=== PATIENT | female | born 1995 | race Caucasian/White ===

== ENCOUNTER 2017-04-23 18:51 | Emergency (ER) | payer BC ==
--- NOTE | 2017-04-23 19:12 | Emergency Department Record ---
History of Present Illness - General Chief complaint: Pain Stated complaint: LT HIP PAIN Time Seen by Provider: 04/23/17 19:04 Source: Patient, Family Mode of Arrival: Ambulatory Limitations: No limitations - History of Present Illness Initial comments: 22 yo female presents with left lower back pain that started at work today. She works as a veterinary assistance. She states she does have a history of scoliosis. She states today she had to hold animals on two occasions while leaning over in an awkward position. She gradually developed sharp left lower back pain with any movement. Her only position of comfort is standing up. No weakness, numbness, tingling or radiation down the legs. No history of back surgery. The actual left hip itself is not painful. MD Complaint: Other (back pain) -: Hour(s) (5) Location: Left -: Yes Arthralgia Radiation: Distal Quality: Aching, Sharp Consistency: Constant Improves with: Immobilization Worsens with: Palpation, Walking, Weight bearing Associated Symptoms: Denies other symptoms - Related Data Previous Rx's Medication Instructions Recorded Cyclobenzaprine HCl [Flexeril] 10 mg PO TID #20 tablet 04/23/17 Allergies Allergy/AdvReac Type Severity Reaction Status Date / Time latex Allergy Intermediate RASH Unverified 02/07/17 10:33 Penicillins Allergy Intermediate RASH Unverified 02/07/17 10:33 Review of Systems Constitutional: Denies: Chills, Fever, Malaise, Weakness Eyes: Denies: Eye discharge, Vision change ENT: Denies: Congestion Respiratory: Denies: Cough, Dyspnea, Hemoptysis, Stridor, Wheezes Cardiovascular: Denies: Chest pain Endocrine: Denies: Fatigue Gastrointestinal: Denies: Abdominal pain, Diarrhea, Nausea, Vomiting Genitourinary: Denies: Dysuria, Frequency, Hematuria, Urgency Musculoskeletal: Reports: As per HPI, Arthralgia, Back pain Skin: Denies: Bruising, Change in color, Rash Neurological: Denies: Abnormal gait, Confusion, Headache, Numbness, Paresthesias , Tingling, Tremors, Weakness Psychiatric: Denies: Anxiety Hematological/Lymphatic: Denies: Blood Clots, Easy bleeding, Easy bruising, Swollen glands Physical Exam - General General Appearance: Alert, Oriented x3, Cooperative, No acute distress Limitations: No limitations - Head Head exam: Atraumatic, Normocephalic, Normal inspection - Eye Eye exam: Normal appearance. negative: Conjunctival injection, Periorbital swelling - ENT ENT exam: Normal exam, Mucous membranes moist Ear exam: Normal external inspection Nasal Exam: Normal inspection Mouth exam: Normal external inspection - Neck Neck exam: Normal inspection, Full ROM - Respiratory Respiratory exam: Normal lung sounds bilaterally. negative: Respiratory distress - Cardiovascular Cardiovascular Exam: Regular rate, Normal rhythm, Normal heart sounds - GI/Abdominal GI/Abdominal exam: Soft. negative: Guarding - Rectal Rectal exam: Deferred - exam: Deferred - Extremities Extremities exam: Normal inspection, Normal capillary refill. negative: Calf tenderness, Full ROM, Joint swelling, Pedal edema, Tenderness Image of Full Body: 1 - tender left lowr lumbar, no rash, left hip negative log roll, no pain on palpation, foot flexion and extension intact, no numbness, tingling no weakness of the LLE against resistence. - Back Back exam: Reports: Normal inspection, CVA tenderness (L) (deep left lower lumbar), Muscle spasm, Paraspinal tenderness, Tenderness. Denies: CVA tenderness (R), Full ROM, Rash noted, Vertebral tenderness - Neurological Neurological exam: Alert, Motor sensory deficit, Normal gait, Oriented X3, Reflexes normal. negative: Altered - Psychiatric Psychiatric exam: Normal affect, Normal mood - Skin Skin exam: Dry, Intact, Normal color, Warm Course - Reevaluation(s) Reevaluation #1: 04/23/17 20:07 The patient is feeling much better after the mediations. She reports very mild pain and spasm at this time. Reevaluation #2: 04/23/17 20:20 No acute changes on the Lumbar XR. Scoliosis noted. 04/23/17 20:23 The UA is negative 04/23/17 20:25 HCG is negative Disposition Disposition: Discharge Clinical Impression: Lumbar strain Qualifiers: Encounter type: initial encounter Qualified Code(s): S39.012A - Strain of muscle, fascia and tendon of lower back, initial encounter Disposition: Home, Self-Care Condition: (1) Good Instructions: Low Back Strain (ED) Additional Instructions: Rest tomorrow No prolonged standing, lifting, bending Call your doctor for close follow up and a recheck this week of your back pain Return to the ER if worse, weakness, changes in bowel or bladder functions or any new concerns Prescriptions: Cyclobenzaprine HCl [Flexeril] 10 mg PO TID #20 tablet Forms: Patient Portal Access Time of Disposition: 20:25 Quality - Quality Measures Quality Measures: N/A - Blood Pressure Screening Does Patient Have Any of the Following: No Blood Pressure Classification: Pre-Hypertensive BP Reading Systolic Measurement: 145 Diastolic Measurement: 87 Screening for High Blood Pressure: < Pre-Hypertensive BP, F/U Documented > [ [id number]] Pre-Hypertensive Follow-up Interventions: Referral to alternative/primary care provider.
[2017-04-23] MEDS: KETOROLAC 30 MG/ML VIAL IVP ONE (19:44)
[2017-04-23] MEDS: MORPHINE SULFATE 5 MG/ML PFS IVP ONE (19:45)
[2017-04-23] MEDS: 0.9 % SODIUM CHLORIDE 1,000 ML BAG IV ONE (20:10)
[2017-04-23] MEDS: ACETAMINOPHEN 500 MG TABLET PO ONE (20:10)
[2017-04-23] MEDS: CYCLOBENZAPRINE 10MG TABLET PO ONE (20:11)
[2017-04-23 20:20] LABS: URINE APPEARANCE CLEAR; URINE BILIRUBIN NEGATIVE (NEGATIVE); URINE BLOOD NEGATIVE (NEGATIVE); URINE COLOR YELLOW; URINE GLUCOSE (UA) NEGATIVE (NEGATIVE); URINE KETONE NEGATIVE (NEGATIVE); URINE LEUKOCYTE ESTERASE NEGATIVE (NEGATIVE); URINE NITRITE NEGATIVE (NEGATIVE); URINE PROTEIN NEGATIVE (NEGATIVE); URINE UROBILINOGEN 0.2 E.U./dL (0.20 - 1.00)
[2017-04-23 20:22] LABS: HCG,QUALITATIVE URINE NEGATIVE (NEGATIVE)
--- NOTE | 2017-04-26 07:56 | RADIOLOGY REPORT ---
EXAM: LUMBAR SPINE, AP AND LATERAL VIEWS HISTORY: BACK PAIN. SCOLIOSIS HISTORY. LEFT HIP PAIN. TECHNIQUE: AP and lateral views of the lumbar spine were obtained. Comparison: None. FINDINGS: There is normal bone mineralization. Five non-rib bearing lumbar type vertebra are identified. Mild to moderate levoconvex scoliosis is present centered at the L2 level. The vertebral bodies are otherwise normal in alignment and height. No acute fracture nor destructive bone lesion is seen. The intervertebral disks and facet joints are grossly maintained. IMPRESSION: 1. NO ACUTE OSSEOUS OR LIGAMENTOUS ABNORMALITY. NO LYTIC OR BLASTIC BONE LESION VISUALIZED. 2. MILD TO MODERATE LEVOCONVEX SCOLIOSIS CENTERED AT THE L2 LEVEL. JOB NUMBER: [id number] [facility]
== END 2017-04-23 20:37 | disposition home or self-care (01) ==
LOC: ER 18:51
DX: S29.012A Strain of muscle and tendon of back wall of thorax, initial encounter (principal); M25.552 Pain in left hip; X50.0XXA Overexertion from strenuous movement or load, initial encounter; Y93.K9 Activity, other involving animal care; Y92.89 Other specified places as the place of occurrence of the external cause; Y99.0 Civilian activity done for income or pay
CPT/HCPCS: 99284 ×2; 96374; 96375; 81003; 81025; 72100; J1885; J2270

== ENCOUNTER 2018-07-29 07:07 | Day surgery (SDC) | payer BC ==
[~2018-07-29 07:07] MED LIST: ACETAMINOPHEN 1,000 MG/100 ML BTL IV ONE
[2018-07-29] MEDS ORDERED: FENTANYL PF 100MCG/2ML VIAL IV ONE (07:08)
[2018-07-29] MEDS ORDERED: LIDOCAINE 2% MDV (20MG/ML) 20ML VIAL IV ONE (07:08)
[2018-07-29] MEDS ORDERED: KETOROLAC 30 MG/ML VIAL IVP ONE (07:08)
[2018-07-29] MEDS ORDERED: SEVOFLURANE 250 ML INH ONE (07:08)
[2018-07-29] MEDS ORDERED: MIDAZOLAM HCL 2MG/2ML VIAL IV ONE (07:08)
[2018-07-29] MEDS ORDERED: PROPOFOL 10 MG/ML VIAL IV ONE (07:08)
[2018-07-29] MEDS ORDERED: BUPIVACAINE 0.25% W/EPI MPF 30ML VIAL IVP ONE (07:08)
--- NOTE | 2018-07-30 08:30 | Operative Note ---
DATE OF SURGERY: 07/29/2018 Surgeon: Selvin Paige DO PREOPERATIVE DIAGNOSIS: Left axillary adenopathy. POSTOPERATIVE DIAGNOSIS: Left axillary adenopathy. OPERATION: Left axillary dissection with lymphadenectomy. Indication: The patient is a 27-year-old female who has had some ongoing left lymphadenopathy. Imaging studies were consistent with enlarged lymph node. We did discuss FNA versus excision. Risks, benefits, and alternatives were discussed. Risks include bleeding, infection, acute or chronic pain, seroma formation. She understood this fully. Thereafter, consent was signed and questions answered. PROCEDURE: The patient was taken to the operating room and placed in a supine position. General anesthesia was administered per the department of anesthesia. The patient's axillary region was prepped and draped in the usual fashion. Adequate timeout was performed. She did receive preoperative antibiotic as well as VTE prophylaxis. At this time, the area in the axilla was anesthetized with a total of 10 mL of 0.25% Sensorcaine with epinephrine. A 4 cm curvilinear incision was made just at the anterior hair line at the edge of the pectoralis muscle. This was carried down through the subcutaneous tissues to the axillary contents. These were dissected free from the surrounding tissue with Metzenbaum scissors. I did have to cut at least 1 intercostobrachial nerve. There was a bundle of lymph nodes encountered. These were dissected free from the surrounding tissue and passed off the field. These were sent fresh for flow cytometry. The wound was then irrigated. It was closed with 3-0 and 4-0 Vicryl. Dermabond was placed. She was taken to the recovery room in satisfactory condition. FINDINGS AT THE TIME OF SURGERY: Left axillary lymphadenopathy, removed as above. CC: Lisa Agustin MD [facility]
== END 2018-07-29 09:47 | disposition home or self-care (01) ==
LOC: SUR 07:07
PROVIDERS: ATTEND Surgery
DX: R59.0 Localized enlarged lymph nodes (principal)
CPT/HCPCS: 81025; J1885